=== PATIENT | female | born 1990 ===

== ENCOUNTER 2022-02-19 19:38 | Emergency (ER) | payer SELFPAY ==
[~2022-02-19] VITALS: Ht 165.1 cm; Wt 54.4 kg
[2022-02-19] MEDS ORDERED: IV NORMAL SALINE 1000 ML BAG IV ONE (20:00)
--- NOTE | 2022-02-19 20:21 | NUR ---
pt taken for cat scan.
--- NOTE | 2022-02-19 20:24 | NUR ---
pt bib ra for syncope and head laceration.
[2022-02-19 20:32] LABS: HEMATOCRIT 37.3 % (31.2-41.9); MEAN CORPUSCULAR HEMOGLOBIN 31.4 uug (24.7-32.8); MEAN CORPUSCULAR VOLUME 89.9 fL (75.5-95.3); PLATELET COUNT (AUTO) 250 K/uL (179-408)
--- NOTE | 2022-02-19 20:32 | NUR ---
pt returned from cat scan.
[2022-02-19] MEDS ORDERED: LIDOCAINE 1%-EPI 1:100,000 20 ML VIAL ONE (20:50)
--- NOTE | 2022-02-19 21:56 | NUR ---
Dr. Yu at bedside for procedure.
[2022-02-19 23:00] LABS: *BILIRUBIN,URIN NEGATIVE (NEGATIVE); *BLOOD, URINE NEGATIVE (NEGATIVE); *CLARITY,URINE CLEAR (CLEAR); *COLOR,URINE YELLOW (YELLOW); *KETONES,URINE 3+ (NEGATIVE); *UROBILINOGEN,URINE 0.2 E.U./dl (NORMAL); LEUKOCYTE ESTERASE ,URINE NEGATIVE (NEGATIVE); NITRITE, URINE NEGATIVE (NEGATIVE); UGLUCOSE NEGATIVE (NEGATIVE)
[2022-02-19 23:04] LABS: ETHANOL < 3 MG/DL (0-0)
--- NOTE | 2022-02-20 00:50 | NUR ---
made pt aware that we are still waiting on lab results.
[2022-02-20 01:12] LABS: CARBON DIOXIDE 21 mmol/L (21-32); CHLORIDE 103 mmol/L (98-107); CREATININE 0.7 mg/dL (0.6-1.3); GLUCOSE 106 mg/dL (74-106); POTASSIUM 3.6 mmol/L (3.5-5.1); UREA NITROGEN, BLOOD 13 mg/dL (7-18)
[2022-02-20 01:19] LABS: *AMPHETAMINE, URINE NEGATIVE (NEGATIVE); *CANNABINOID, URINE POSITIVE (NEGATIVE); *COCCAINE, URINE NEGATIVE (NEGATIVE); *OPIATE, URINE NEGATIVE (NEGATIVE); *PHENCYCLIDINE SCREEN,URINE NEGATIVE (NEGATIVE)
[2022-02-20 01:23] LABS: ALANINE AMINOTRANSFERASE 45 U/L (14-59); ALKALINE PHOSPHATASE 59 U/L (50-136); ASPARTATE AMINOTRANSFERASE 20 U/L (15-37); BILIRUBIN,DIRECT 0.2 mg/dL (0.0-0.2); BILIRUBIN,TOTAL 0.9 mg/dL (0.2-1.0); TOTAL PROTEIN, SERUM 7.8 g/dL (6.4-8.2)
--- NOTE | 2022-02-20 03:04 | NUR ---
Patient discharged to home in stable condition. Written and verbal after care instructions given. Patient verbalizes understanding of instructions. Stressed follow up or return to ER for worsening s/s.
[2022-02-20 03:16] VITALS: BP 100/56
== END 2022-02-20 03:16 | disposition home or self-care (01) ==
LOC: ER 19:40
DX: R55 Syncope and collapse (principal); S01.81XA Laceration without foreign body of other part of head, initial encounter; W19.XXXA Unspecified fall, initial encounter; Y92.89 Other specified places as the place of occurrence of the external cause; D72.829 Elevated white blood cell count, unspecified
CPT/HCPCS: 12011; 36415; 70450; 80048; 80076; 80307; 80320; 81003; 84484; 84702; 85025; 93005; 96360; 99285; J3490; J7040; A4663; G0480